=== PATIENT | male | born 1990 | race African-American/Black ===

== ENCOUNTER 2024-11-22 12:41 | Emergency (ER) | payer OTHER ==
[~2024-11-22] VITALS: Ht 177.8 cm; Wt 75.0 kg
[2024-11-22 12:50] VITALS: O2SAT 99
[2024-11-22 16:07] LABS: BASOPHILS % 0.3 % (0.0-2.0); EOSINOPHILS % 0.5 % (0.0-5.0); HEMATOCRIT. 45.9 % (42.0-52.0); HEMOGLOBIN. 15.2 g/dL (14.0-18.0); LYMPHOCYTES % 10.9 % (20.0-50.0); MEAN CORPUSCULAR HEMOGLOBIN 32.7 pg (28.0-32.0); MEAN CORPUSCULAR HGB CONC 33.2 g/dL (31.0-37.0); MEAN CORPUSCULAR VOLUME 98.6 fL (80.0-94.0); MEAN PLATELET VOLUME 8.9 fl (7.4-10.4); MONOCYTES % 6.2 % (2.0-8.0); NEUTROPHILS % 82.1 % (40.0-76.0); PLATELET 233 x1000/uL (130-400); RED BLOOD CELL COUNT 4.65 mill/uL (4.7-6.1); RED CELL DISTRIBUTION WIDTH 13.7 % (11.6-14.6); WHITE BLOOD COUNT 11.6 x1000/uL (4.5-11.0)
[2024-11-22 16:11] LABS: CHLORIDE 108 mEq/L (98-107); POTASSIUM 3.9 mEq/L (3.5-5.1); SODIUM 140 mEq/L (136-145)
[2024-11-22] MEDS: HYDROCODONE/ACETAMINOPHEN 5/325MG TABLET PO STA (16:11)
[2024-11-22 16:12] LABS: CALCIUM 9.4 mg/dL (8.7-10.4); CARBON DIOXIDE 27 mEq/L (21-32)
[2024-11-22] MEDS: ONDANSETRON 4MG ODT PO STA (16:12)
[2024-11-22 16:17] LABS: CREATININE 1.4 mg/dL (0.6-1.3); GLUCOSE 116 mg/dL (70-105); UREA NITROGEN BLOOD 12 mg/dL (9-23)
[2024-11-22 16:19] LABS: ALANINE AMINOTRANSFERASE 16 IU/L (10-49); ALBUMIN 4.5 g/dL (3.2-4.8); ASPARTATE AMINOTRANSFERASE 24 IU/L (<34); BILIRUBIN DIRECT 0.2 mg/dL (<=3.0); BILIRUBIN TOTAL 0.9 mg/dL (0.1-1.0); PROTEIN TOTAL 8.1 g/dL (6.0-8.3)
[2024-11-22] MEDS ORDERED: TRAM50TA3 MT (18:09)
[2024-11-22] MEDS ORDERED: ONDA4TAB50 PO (18:09)
[2024-11-22] MEDS ORDERED: BISM-169 PO (18:09)
[2024-11-22] MEDS ORDERED: ACET-2708 PO (18:09)
[2024-11-22 18:28] VITALS: BP 128/79; PULSE 76; RESP 18; TEMP 36.9; O2SAT 99
[2024-11-23] MEDS ORDERED: IOHEXOL-300 100 ML BOTTLE ONE (00:23)
== END 2024-11-22 18:29 | disposition home or self-care (01) ==
LOC: ER 12:53
DX: R10.9 Unspecified abdominal pain (principal); K52.9 Noninfective gastroenteritis and colitis, unspecified
CPT/HCPCS: 99285; 74177; 80076; 80048; 83690; 85025; 36415; Q9967; Q0162